=== PATIENT | male | born 1930 | race Caucasian/White ===

== ENCOUNTER 2016-07-22 21:22 | Emergency (ER) | payer OTHER ==
[~2016-07-22] VITALS: Ht 177.8 cm; Wt 71.3 kg
[2016-07-22 21:27] VITALS: BP 157/81; PULSE 85; RESP 16; TEMP 97.5; O2SAT 97
[2016-07-22] MEDS ORDERED: TETANUS/DIPHTHERIA TOXOID ADULT 0.5 ML VIAL IM ONE (22:00)
--- NOTE | 2016-07-22 22:06 | PD ---
HPI Chief Complaint: Fall Time Seen by Provider: 22:02 Travel History International Travel<30 days: No Contact w/Intl Traveler<30days: No Traveled to known affect area: No History of Present Illness HPI 86-year-old male presents to the emergency room for evaluation of right wrist pain, left great toe pain, and a facial laceration after trip and fall earlier today. Patient fell approximately 11 hours prior to arrival. He was running on the sidewalk when he stubbed his right great toe and tripped falling forward. He landed on an outstretched arm before striking his face on the concrete. His glasses cut his face. There was no loss of consciousness. He went home and cleaned all of his wounds thoroughly. He has not taken anything for pain. States he had no wrist pain at first but it began to develop shortly afterward. Pain is worsened with range of motion. Patient denies paresthesias. Unknown last tetanus. Denies chronic medical conditions or daily medications. He is not on blood thinners. 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 Tetanus Vaccination: Unknown Influenza Vaccination: Yes ?: Not Past Surgical History Other Surgery: Yes (Partial removal of vocal cords) Social History Alcohol Use: No Tobacco Use: No Substance Use: No Allergies-Medications (Allergen,Severity, Reaction): Coded Allergies: Penicillin (Verified Allergy, Unknown, 07/22/16) Reported Meds & Prescriptions Reported Meds & Active Scripts Active Lortab (Hydrocodone-Acetaminophen) 5-325 Mg Tab 1 Tab PO Q6H PRN Review of Systems Except as stated in HPI: all other systems reviewed are Neg Physical Exam Narrative GENERAL: Well-developed, well-nourished male in no acute distress. Afebrile. Ambulatory. Appears generally than stated age. SKIN: Focused skin assessment warm/dry. There is a superficial abrasion to the right lateral forearm, right knee. There is a superficial, well approximated laceration just above the right eyebrow. Moderate ecchymosis the right distal wrist. HEAD: Atraumatic. Normocephalic. EYES: Pupils equal and round. No scleral icterus. No injection or drainage. EARS: Bilateral pinnae and external canals appear within normal limits. Bilateral tympanic membranes without erythema, dullness or perforation. No hemotympanum. NECK: Trachea midline. No JVD. CARDIOVASCULAR: Regular rate and rhythm. No murmur appreciated. RESPIRATORY: No accessory muscle use. Clear to auscultation. Breath sounds equal bilaterally. MUSCULOSKELETAL: No obvious deformities. No clubbing. No cyanosis. Moderate edema of the right distal wrist. Extreme tenderness to palpation of the distal radius. 2+ radial pulse. Radial, ulnar, and median nerves intact. NEUROLOGICAL: Awake and alert. No obvious cranial nerve deficits. Motor grossly within normal limits. Normal speech. PSYCHIATRIC: Appropriate mood and affect; insight and judgment normal. Data Data Last Documented VS Vital Signs Date Time Temp Pulse Resp B/P Pulse Ox O2 Delivery O2 Flow Rate FiO2 07/22/16 23:23 84 18 145/86 98 07/22/16 21:[address] Brain W/O Iv Contrast(Rout) (07/22/16 ) Wrist, Complete ([id number]) (07/22/16 ) Toe (Min 2vws) (07/22/16 ) Tetanus/Diphtheria Tox Adult (Tetanus/Di (07/22/16 22:00) Splint Or Brace Apply/Monitor (07/22/16 22:53) Splint Or Brace Apply/Monitor (07/22/16 23:16) Fiberglass Sugartong Sp Ad Arm (07/23/16 ) Sling Cradle Arm (07/23/16 ) MDM Medical Decision Making Medical Screen Exam Complete: Yes Emergency Medical Condition: Yes Medical Record Reviewed: Yes Differential Diagnosis Laceration versus abrasion versus fracture versus sprain versus strain Narrative Course 86-year-old male presents to the emergency room for evaluation of right wrist pain, left great toe pain, and facial laceration that occurred after trip and fall earlier today. Patient tripped on the curb and fell forward on an outstretched arm. He then struck his head/face in the concrete and sustained a small laceration above his right eyebrow. Laceration was repaired with glue and Steri-Strips. He denies loss of consciousness. He is not on blood thinners. No focal neurological deficits. CT of the brain is negative. Right wrist is externally tender to palpation with moderate edema and extreme ecchymosis. No obvious deformity. No loss of range of motion. Radial, ulnar, and median nerves intact. 2+ radial pulse. X-ray reveals a radial styloid fracture. Patient placed in sugar tong splint. X-ray of the left toe is negative. He was discharged with Lortab (after discussing risks and benefits of narcotics and elderly) and told to follow up with an orthopedic surgeon and primary care physician or return to the emergency room for worsening symptoms. He understands and agrees to plan. Diagnosis Primary Impression: Closed fracture of radial styloid Qualified Code: S52.514A - Closed nondisplaced fracture of styloid process of right radius, initial encounter Additional Impression: Facial laceration Qualified Code: S01.81XA - Facial laceration, initial encounter Referrals: Orthopedist Primary Care Physician Patient Instructions: Facial Laceration (ED), General Instructions, Wrist Fracture in Adults (ED) Departure Forms: Tests/Procedures Additional Instructions: Rest and drink plenty of fluids. Keep wounds clean and dry. Do not allow glue to soak in water. Take Lortab with food as directed, as needed for pain. Do not drink alcohol or drive while taking this medication. Elevate and apply ice to the affected area for 20 minutes at a time, as needed for pain and swelling. Follow-up with a primary care physician. Return to the emergency room for worsening symptoms. Scripts Hydrocodone-Acetaminophen (Lortab)5-325 Mg Tab1 Tab PO Q6H PRN (PAIN) #15 TAB Ref 0 Prov:Jered Bellamy MD 07/22/16 Disposition: 01 DISCHARGE HOME Condition: Stable Nathalia Gallardo July 22, 2016 22:06
--- NOTE | 2016-07-22 22:36 | RADHPO ---
EXAM DATE/TIME: 07/22/2016 22:11 [facility] COMPARISON: No previous studies available for comparison. INDICATIONS : Trauma, fall. RADIATION DOSE: 61.29 CTDIvol (mGy) MEDICAL HISTORY : Carcinoma, not otherwise specified. SURGICAL HISTORY : None. ENCOUNTER: Initial ACUITY: 1 day PAIN SCALE: 4/10 LOCATION: cranial TECHNIQUE: Multiple contiguous axial images were obtained of the head. Using automated exposure control and adj ustment of the mA and/or kV according to patient size, radiation dose was kept as low as reasonably a chievable to obtain optimal diagnostic quality images. FINDINGS: CEREBRUM: The ventricles are normal for age. No evidence of midline shift, mass lesion, hemorrhage or acute in farction. No extra-axial fluid collections are seen. POSTERIOR FOSSA: The cerebellum and brainstem are intact. The 4th ventricle is midline. The cerebellopontine angle i s unremarkable. EXTRACRANIAL: The visualized portion of the orbits is intact. SKULL: The calvaria is intact. No evidence of skull fracture. CONCLUSION: 1. No evidence of acute intracranial pathology. No masses are identified. James Koroma MD on July 22, 2016 at 22:33 Board Certified Radiologist. This report was verified electronically.
--- NOTE | 2016-07-22 22:46 | RADHPO ---
EXAM DATE/TIME: 07/22/2016 22:06 [facility] COMPARISON: No previous studies available for comparison. INDICATIONS : Right wrist pain after fall yesterday MEDICAL HISTORY : None. SURGICAL HISTORY : None. ENCOUNTER: Initial ACUITY: 1 day PAIN SCORE: 8/10 LOCATION: Right entire wrist FINDINGS: There is a nondisplaced fracture of the radial styloid age uncertain. 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 Bony mineralization is normal. Joint spaces are maintained. CONCLUSION: 1. Nondisplaced radial styloid fracture age uncertain James Koroma MD on July 22, 2016 at 22:44 Board Certified Radiologist. This report was verified electronically.
--- NOTE | 2016-07-22 22:46 | RADHPO ---
EXAM DATE/TIME: 07/22/2016 22:10 [facility] COMPARISON: No previous studies available for comparison. INDICATIONS : Left great toe pain after fall yesterday MEDICAL HISTORY : None. SURGICAL HISTORY : None. ENCOUNTER: Initial ACUITY: 1 day PAIN SCORE: 8/10 LOCATION: Left great toe FINDINGS: Examination of the first digit of the left foot demonstrates no evidence of fracture or dislocation. No radiopaque foreign bodies are seen. The soft tissues are intact. CONCLUSION: 1. There is no evidence of acute fracture. James Koroma MD on July 22, 2016 at 22:45 Board Certified Radiologist. This report was verified electronically.
[2016-07-22] MEDS ORDERED: HYDR-3533 PO (23:00)
[2016-07-22 23:23] VITALS: BP 145/86
== END 2016-07-22 23:44 | disposition home or self-care (01) ==
LOC: PHEFT 21:22
DX: S52.514A Nondisplaced fracture of right radial styloid process, initial encounter for closed fracture (principal); S01.111A Laceration without foreign body of right eyelid and periocular area, initial encounter; W01.198A Fall on same level from slipping, tripping and stumbling with subsequent striking against other object, initial encounter; Y93.02 Activity, running; Y92.480 Sidewalk as the place of occurrence of the external cause; Z88.0 Allergy status to penicillin; Z23 Encounter for immunization
CPT/HCPCS: 12011; 29125; 70450; 73110; 73660; 90714